=== PATIENT | female | born 1985 | race Caucasian/White ===

== ENCOUNTER 2022-08-20 05:49 | Inpatient (IN) | payer OTHER, SELFPAY ==
[2022-08-20] VITALS (186 sets, daily range): BP systolic 96–138; BP diastolic 51–90; PULSE 70–130; RESP 16; TEMP 36.4–37.2; O2SAT 77–100; BMI 25.7
--- NOTE | 2022-08-20 06:46 | LDADM ---
This patient, Mario Parra, was admitted to Labor/Delivery/Recovery 104 on 08/20/22 at 05:49. Plans for labor, pain management and were discussed with patient. Patient/family oriented to hospital policies and general routines including ID bracelet, bed and alarms, visiting hours, pain management, procedures, bathroom and other care routines, personal items, smoking policy, room service/diet and guest tray routines, security routines, and visiting hours. Patient/Family are encouraged to report perceived risks to care and to ask questions if they do not understand what they are told or what they should do. See OBIX for further documentation.
[2022-08-20 06:48] LABS: Basophils Percent Auto 0.3 % (0.2-1.2); Eosinophils Absolute Auto 0.2 K/mm3 (0-0.3); Eosinophils Percent Auto 1.6 % (0-4.4); Hemoglobin 11.4 g/dL (12.0-15.0); Immature Granulocyte Absolute 0.06 K/mm3 (0.00-0.031); Immature Granulocyte Percent A 0.6 % (0-0.5); Lymphocytes Absolute Auto 2.07 K/mm3 (0.9-3.2); Lymphocytes Percent Auto 21.1 % (18.3-44.2); Mean Corpuscular HGB Conc 32.6 g/dl (32-36); Mean Corpuscular Hemoglobin 29.6 pg (26-34); Mean Corpuscular Volume 90.9 fl (80-100); Mean Platelet Volume 9.7 fl (7.4-10.4); Monocytes Percent Auto 10.5 % (2.6-8.5); Neutrophils Absolute Auto 6.5 K/mm3 (1.3-6.7); Neutrophils Percent Auto 65.9 % (45.5-73.1); Platelet Count Result 211 k/mm3 (150-375); Red Blood Count 3.85 M/mm3 (4.2-5.4); Red Cell Distribution Width 12.9 % (11.5-14.5); White Blood Count 9.8 K/mm3 (4.5-10.0)
[2022-08-20] MEDS: OXYTOCIN 30 UNITS/NS 500 ML 30 UNITS/500 ML BAG IV CONT (07:00)
[2022-08-20] MEDS: LACTATED RINGERS 1,000 ML 125 ML IV CONT ×3 (07:02→14:47)
[2022-08-20] MEDS: AMPICILLIN 2 GM/NS 100 ML 2 GM/100 ML BAG IVPB (07:02)
--- NOTE | 2022-08-20 07:18 | WPDANESEPP ---
Anes - Eval Pre Procedure Procedure: labor epidural Date/Time: 08/20/22 07:18 Surgeon: jennifer Preop Diagnosis: pain during labor Pre Op Diagnosis: iol Patient Data Age: 37 Gender: F Height: 1.6 m Weight: 66 kg Last Vital Signs Pulse 87 08/20/22 07:16 BP 136/90 08/20/22 07:16 O2 Del Method Room Air 08/20/22 06:45 Allergies Allergy/AdvReac Type Severity Reaction Status Date / Time No Known Allergies Allergy Unknown Verified 08/20/22 07:14 Home Medications Medication Instructions Recorded Confirmed Type vits no.126-ferrous fum 1 tablet PO DAILY 07/25/22 07/25/22 History 28 mg iron-folic acid 800 mcg tablet (Classic ) Laboratory Tests 08/20/22 08/20/22 06:33 06:33 WBC 9.8 K/mm3 K/mm3 (4.5-10.0) RBC 3.85 M/mm3 L M/mm3 (4.2-5.4) Hgb 11.4 g/dL L g/dL (12.0-15.0) Hct 35.0 % L % (37.0-47.0) MCV 90.9 fl fl (80-100) MCH 29.6 pg pg (26-34) MCHC 32.6 g/dl g/dl (32-36) RDW 12.9 % % (11.5-14.5) Plt Count 211 k/mm3 k/mm3 (150-375) MPV 9.7 fl fl (7.4-10.4) Immature Gran % (Auto) 0.6 % H % (0-0.5) Neut % (Auto) 65.9 % % (45.5-73.1) Lymph % (Auto) 21.1 % % (18.3-44.2) [place] % (Auto) 10.5 % H % (2.6-8.5) Eos % (Auto) 1.6 % % (0-4.4) Baso % (Auto) 0.3 % % (0.2-1.2) Lymph # (Auto) 2.07 K/mm3 K/mm3 (0.9-3.2) [place] # (Auto) 1.0 K/mm3 H K/mm3 (0.1-0.6) Eos # (Auto) 0.2 K/mm3 K/mm3 (0-0.3) Baso # (Auto) 0.0 K/mm3 K/mm3 (0.0-0.1) Abs Immat Gran (auto) 0.06 K/mm3 H K/mm3 (0.00-0.031) Absolute Neuts (auto) 6.5 K/mm3 K/mm3 (1.3-6.7) Absolute Nucleated RBC 0.0 K/mm3 K/mm3 (0.0-0.012) Nucleated RBC % 0.0 % % (0.0-0.2) RPR Pending Patient hx anesthesia problems: none Family hx anesthesia problems: none Results Review: All pre-operative results and documents have been reviewed as part of the pre-operative evaluation. [facility] Past Medical History Medical History (Updated 08/20/22 @ 07:19 by Esther Baires CRNA) IUP (intrauterine ), incidental Family History Family History (Updated 07/25/22 @ 13:34 by Clare Duarte RN) Mother Acute myocardial infarction Social History Social History Smoking status: Former smoker Tobacco type: e-cigarettes/vaping Substance use: never Lack of Transportation: No Lack of Food: Never True Current Housing: I Have Housing Concerned About Future Housing: No Difficulty Paying Gas/Electric Bills: No Difficulty Paying for Meds: No Currently Unemployed: No Education: Associate Degree Difficulty w/ Childcare or Family Care: No Spiritual care concerns: No Exam Day of Procedure 08/20/22 07:18
--- NOTE | 2022-08-20 07:50 | WPDOBADMIT ---
Obstetrics - Admit Note Admission Note: record reviewed. No pertinent additions to the history and/or any subsequent changes in the physical findings that are not consistent with the expected course of the were found. Additions to the history and/or subsequent changes in the physical findings follow. None.
--- NOTE | 2022-08-20 07:50 | PM.OBPNLAB ---
Pain Control Date/time seen: 08/20/22 07:50 Pain control: tolerating well Comments: Resting in bed. Denies feeling any regular/painful contractions. Contractions Monitor mode: External Status status: Category l Assessment and Plan Assessment: induction ongoing Comments: CNM to bedside. Discussed plan of care. Patient currently receiving 1st dose of ampicillin for group B strep positive status. Pitocin infusing. Plan to increase every 30 minutes as needed to achieve adequate contraction pattern. Discussed possibility of breaking her water later this morning. Discussed risks and benefits and she is agreeable. Anticipate vaginal . Dr. Morris updated
[2022-08-20] MEDS: AMPICILLIN 1 GM/NS 50 ML 1 GM/50 ML BAG IVPB ×2 (10:57→14:46)
[2022-08-20 11:30] LABS: Rapid Plasma Reagin Non-Reactive (NonReactive)
--- NOTE | 2022-08-20 12:13 | PM.OBPNLAB ---
Pain Control Date/time seen: 08/20/22 12:10 Pain control: tolerating well and epidural Pelvic Exam Dilation (cm): 3 Effacement (%): 60 station: -3 Amniotic membrane status: Intact Contractions Monitor mode: External Contraction pattern: Irregular Contraction phase: Contraction Contraction intensity: Moderate Status status: Category l Assessment and Plan Pitocin rate (mU/min): 16 Assessment: induction ongoing Comments: CNM at bedside. Discussed plan of care. Patient very comfortable with her epidural infusing. Discussed option of amniotomy and placement of intrauterine contraction monitor. Patient is agreeable. Amniotomy performed. There was large return of clear amniotic fluid. IUPC inserted easily and returned with clear fluid. Cervical exam after rupture of membranes is 3.5 / 60/-3. Oxytocin decreased to 8 mL/hr following amniotomy. Plan to increase as needed to achieve adequate contraction pattern. Anticipate vaginal .
--- NOTE | 2022-08-20 18:06 | PM.OBPNLAB ---
Pain Control Date/time seen: 08/20/22 1740 Pain control: tolerating well and epidural Comments: Feeling intermittent rectal pressure. Contractions Monitor mode: Internal Contraction frequency: 2 (2-3) Contraction pattern: Irregular Intrauterine tone measurement: 220 Status status: Category l Assessment and Plan Plan: continuous present management Comments: CNM to bedside. Pt feeling intermittent rectal pressure. RN performed SVE very recently and pt was 7cm. Encouraged pt to notify staff member [place] for c/o constant pressure/urge to push. Discussed plan of care. Anticipate vaginal . Dr. Morris updated.
--- NOTE | 2022-08-20 19:00 | PM.OBPRVD ---
OB - Delivery Note Procedure Delivery date: 08/20/22 Procedure: Events: Elective Induction of Labor, Positive Group B Strep (GBS) and Other (AMA) Induction method: Per Pitocin Protocol Delivery augmentation: Rupture of Membranes Delivery monitor: External FHT, External Uterine and Internal FHT Route of delivery: Episiotomy description: None Laceration Description: None Specimen: No Quantitative Blood Loss (ml): 150 Anesthesia type: Epidural Disposition: Floor Narrative: patient arrived for induction of labor at term. She received ampicillin for group B strep prophylaxis. Her induction was started with Pitocin and augmented with amniotomy. She progressed to complete dilation and pushed with a few contractions. She brought the head to a full crown and delivered over an intact perineum. There was great restitution followed by easy delivery of the anterior and posterior shoulders. The was placed on the maternal abdomen and dried and stimulated by the nursery staff. After 1 minute of life the cord was doubly clamped and cut. Cord blood, cord gases, and cord segment were obtained. There was excellent hemostasis. Mother and skin to skin in the delivery room. Baby Date of : 08/20/22 Time of : 19:12 Weeks of gestation at delivery: 39 Infant gender: Female presentation: vertex position: Right Occiput Anterior Placenta delivery description: Spontaneous Cord Vessel Description: 3 Vessels, Clamped/Cut and Delayed Cord Clamping score one minute: 9 score five minutes: 9
--- NOTE | 2022-08-20 19:00 | PM.OBDSVD ---
DS: Admitting Diagnosis Discharge Date 08/21/22 Admitting Diagnosis 37 y.o at 39 weeks 4 days IOL AMA DS: Discharge Diagnosis Discharge Diagnosis (1) Mother currently breast-feeding: Code(s): Z39.1 - Encounter for care and examination of lactating mother Status: Acute (2) (normal spontaneous vaginal delivery): Code(s): O80 - Encounter for full-term uncomplicated delivery Status: Acute OB - DS: Summary OB Procedures : Ultrasound OB Procedures Intrapartum: Spontaneous Vag Delivery OB Procedures: : None Peripartum Data Infant Delivery Method: Natural Vaginal Laceration Description: None Episiotomy description: None complications: none Status at Discharge Overall status at discharge: patient is progressing back to baseline Time Spent with Patient Time attestation: Total time spent providing and/or coordinating discharge services: Exam Narrative: Alert and oriented. Mood is pleasant and cooperative. Urinating without difficulty. Denies passing any large clots. Perineum with minimal edema. Fundus firm and below umbilicus. Const: General: cooperative Orientation/consciousness: patient oriented x3 Limitations: no limitations Resp: Effort & Inspection: normal respiratory effort Auscultation: clear to auscultation bilaterally Cardio: Rate: regular rate GI: Inspection: normal to inspection Neuro: General: patient oriented x3 Extrem: General: normal to inspection Psych: Appearance: grossly normal Mental Status: mental status grossly normal Affect: normal affect Thought process: Normal thought process present DS: Data Data Completed and Pending Labs on day of discharge: Labs from last 24 hours 08/20/22 08/20/22 08/20/22 06:33 06:33 06:33 WBC 9.8 RBC 3.85 L Hgb 11.4 L Hct 35.0 L MCV 90.9 MCH 29.6 MCHC 32.6 RDW 12.9 Plt Count 211 MPV 9.7 Immature Gran % (Auto) 0.6 H Neut % (Auto) 65.9 Lymph % (Auto) 21.1 [place] % (Auto) 10.5 H Eos % (Auto) 1.6 Baso % (Auto) 0.3 Lymph # (Auto) 2.07 [place] # (Auto) 1.0 H Eos # (Auto) 0.2 Baso # (Auto) 0.0 Abs Immat Gran (auto) 0.06 H Absolute Neuts (auto) 6.5 Absolute Nucleated RBC 0.0 Nucleated RBC % 0.0 RPR Non-reactive Blood Type O Positive Antibody Screen Negative Discharge Plan Discharge Attending physician on discharge: Donna Morris Discharging Clinician: Jessie Mayen Anticipated Discharge Date/Time: 08/21/22 07:00 Patient Disposition: Home, Self-Care Activity: may shower Diet: as tolerated and regular Discharge Instructions: Continue taking your vitamin and any other supplements as previously directed (Examples: Iron, Vitamin D). You may take Tylenol 1000mg over the counter every 6 hours as needed for pain. Do not exceed 4000mg of Tylenol daily. You may continue using tucks pads and dermoplast spray if needed for a few more days. Patient Instructions: Antibiotic Form Stand Alone Forms: General Discharge Information Follow-up/Referrals: Jessie Mayen, CNM [Certified Nurse Chemical Tester] - (6 weeks exam) Discharge Medications: New docusate sodium [Colace] 100 mg capsule 100 mg PO DAILY Qty: 30 0RF ibuprofen 600 mg tablet 600 mg PO Q6H PRN (Reason: pain) Qty: 30 0RF norethindrone (contraceptive) [Ortho Micronor] 0.35 mg tablet 0.35 mg PO DAILY Qty: 84 0RF Discontinued Classic 28 mg iron- 800 mcg Tablet 1 tablet PO DAILY Date of admission: 08/20/22 05:49 Primary Care Provider: PHYSICIAN,TIMBER ESTIMATOR Admitting Provider: Donna Morris Attending physician on admission: Donna Morris Condition: Stable
[2022-08-20] MEDS: OXYTOCIN 30 UNITS/NS 500 ML 30 UNITS/500 ML BAG 125 UNITS IV CONT (19:53)
[2022-08-20] MEDS: WITCH HAZEL 40 PADS 1 PAD TOPICAL (21:20)
[2022-08-20] MEDS: BENZOCAINE 20% AER SPR (*SP) 56 GM CAN 1 SPRAY TOPICAL (21:20)
[2022-08-20] MEDS: IBUPROFEN 600 MG TABLET PO (23:51)
--- NOTE | 2022-08-21 00:37 | OBPPTRN ---
08/20/2022 at 2200 Patient transferred to post room #288 in . Support person present. Oriented to unit, room, information board, rooming in, admission packet and security measures. Patient verbalizes understanding.
[2022-08-21] MEDS: ACETAMINOPHEN 325 MG TABLET 650 MG PO ×2 (05:06→12:37)
[2022-08-21 05:10] VITALS: BP 120/73; PULSE 87; RESP 16; TEMP 36.9; O2SAT 100
[2022-08-21 05:28] LABS: Hematocrit 32.4 % (37.0-47.0); Hemoglobin 10.3 g/dL (12.0-15.0)
--- NOTE | 2022-08-21 07:48 | WPDANLDPN2 ---
Anes-Prog Note L&D Date/Time: 08/21/22 07:48 Comfortable throughout: labor and delivery Neuraxial method: epidural Epidural/Spinal procedure site: clean & non-tender Neuro status: Neuro function grossly intact. Cardiovascular status: normal Respiratory status: normal Airway patency: baseline Mental status: baseline Post-Op hydration status: normal Vital Signs: Last Vital Signs Temp 36.9 C 08/21/22 05:10 Pulse 87 08/21/22 05:10 Resp 16 08/21/22 05:10 BP 120/73 08/21/22 05:10 Pulse Ox 100 08/21/22 05:10 O2 Del Method Room Air 08/20/22 06:45 Pain score (VAS): 0 I/O: Intake & Output 08/20/22 08/20/22 08/21/22 15:59 23:59 07:59 Intake Total 2049 Output Total 375 Balance 2049 - Post-procedural complaints: none Patient feedback: Patient satisfied with anesthetic care.
--- NOTE | 2022-08-21 08:27 | PM.OBPNVD ---
OB - PN: Subj Subjective Date/time seen: 08/21/22 0755 Patient comments: no complaints and pain well controlled baby status: doing well and nursing well feeding status: exclusively breast feeding OB - PN: Obj Data Labs 08/21/22 05:11 Labs: Laboratory Results - last 24 hr 08/20/22 08/21/22 06:33 05:11 Hgb 10.3 L Hct 32.4 L RPR Non-reactive OB - PN A/P Assessment and Plan (1) (normal spontaneous vaginal delivery): Code(s): O80 - Encounter for full-term uncomplicated delivery Status: Acute (2) Mother currently breast-feeding: Code(s): Z39.1 - Encounter for care and examination of lactating mother Status: Acute Plan pt desires DC home today Plan day: 1 Plan: discharge home and follow up 6 weeks Time Spent With Patient Time: Total time spent is greater than 50% in coordination of care (as documented) at patient's floor/unit and/or counseling patient: Review of Systems Review of Systems: All systems reviewed & are unremarkable except as noted in HPI and below Exam Narrative: Alert and oriented. Mood is pleasant and cooperative. Urinating without difficulty. Denies passing any large clots. Perineum with minimal edema. Fundus firm and below umbilicus. Const: General: cooperative, healthy appearing, no acute distress and alert Orientation/consciousness: patient oriented x3 Limitations: no limitations Resp: Effort & Inspection: normal respiratory effort Auscultation: clear to auscultation bilaterally Cardio: Rate: regular rate GI: Inspection: normal to inspection Neuro: General: patient oriented x3 Extrem: General: normal to inspection Psych: Appearance: grossly normal Mental Status: mental status grossly normal Affect: normal affect Thought process: Normal thought process present
[2022-08-21 08:35] VITALS: BP 114/79; PULSE 77; RESP 16; TEMP 36.8; O2SAT 99
[2022-08-21] MEDS: IBUPROFEN 600 MG TABLET PO ×2 (08:53→17:55)
[2022-08-21] MEDS: MULTIVIT/MIN/PREN/FOL AC/IRON TABLET 1 TAB PO (08:53)
[2022-08-21 11:41] VITALS: BP 141/79; PULSE 81; RESP 16; TEMP 37.3; O2SAT 100
--- NOTE | 2022-08-21 13:06 | PC.NURSE ---
[id number] Introductions made to Mother and she verbalizes she is able to independently latch infant with appropriate positioning/alignment. She denies any nipple discomfort and is responsively . Infant is currently meeting outcomes for weight, output, jaundice and feeding frequencies of 8-12 times in 24 hours. Mother declines any additional assistance/education at this time. Mother is encouraged to call for assistance if her infant doesn?t latch or there is discomfort with latching. Mother voiced understanding of information shared and the mom reminded of the mom/baby guide and given a business card for an additional resource. Mother has Tiffanie at [employer] for a resource in the community. Mother requests a pump through insurance. Reported to the primary RN.
--- NOTE | 2022-08-21 18:24 | PC.NURSE ---
Patient viewed the discharge video Mother & Baby Care, The First Two Weeks . Patient was given the opportunity and encouraged to ask questions. Patient verbalized understanding of information shared and has been given the mother/baby guide for home reference.
[2022-08-21 20:26] VITALS: BP 121/73; PULSE 100; RESP 16; TEMP 36.5; O2SAT 100
== END 2022-08-21 22:09 | disposition home or self-care (01) | DRG 560 ==
LOC: ANHLDR 19:38 → ANHOB2 08-21 08:37 → ANHLDR 08-22 09:16 → ANHOB2 08-22 09:16
PROVIDERS: Admitting Provider Obstetrics & Gynecology Gynecology; Visit Provider Advanced Practice Midwife
DX: O99.824 Streptococcus B carrier state complicating childbirth (principal); Z37.0 Single live birth; Z3A.39 39 weeks gestation of pregnancy
CPT/HCPCS: 36415; 85014; 85018; 85025; 86592; 86850; 86900; 86901; A9270; J0290; J2590; J2795; J7120